=== PATIENT | female | born 1990 | race African-American/Black ===

== ENCOUNTER 2018-07-19 14:28 | Emergency (ER) | payer BC ==
--- NOTE | 2018-07-19 14:41 | EDM.PDOC ---
ED HPI GENERAL MEDICAL PROBLEM - General Chief Complaint: Genitourinary Problem Stated Complaint: UTI Time Seen by Provider: 07/19/18 14:32 - History of Present Illness INITIAL COMMENTS - FREE TEXT/NARRATIVE: HISTORY AND PHYSICAL: History of present illness: Patient is 28-year-old black female presents with concern of frequency and discomfort with urination similar prior UTIs patient is and monogamous and denies any vaginal discharge irregular bleeding and no fever chills nausea vomitingReview of systems: As per history of present illness and below otherwise all systems reviewed and negative. Past medical history: As per history of present illness and as reviewed below otherwise noncontributory. Surgical history: As per history of present illness and as reviewed below otherwise noncontributory. Social history: No reported history of drug or alcohol abuse. Family history: As per history of present illness and as reviewed below otherwise noncontributory. Physical exam: HEENT: Atraumatic, normocephalic, pupils reactive, negative for conjunctival pallor or scleral icterus, mucous membranes moist, throat clear, neck supple, nontender, trachea midline. Lungs: Clear to auscultation, breath sounds equal bilaterally, chest nontender. Heart: S1S2, regular, negative for clicks, rubs, or JVD. Abdomen: Soft, nondistended, nontender. Negative for masses or hepatosplenomegaly. Negative for costovertebral tenderness. Pelvis: Stable nontender. Genitourinary: Deferred. Rectal: Deferred. Extremities: Atraumatic, negative for cords or calf pain. Neurovascular unremarkable. Neuro: Awake, alert, oriented. Cranial nerves II through XII unremarkable. Cerebellum unremarkable. Motor and sensory unremarkable throughout. Exam nonfocal. Diagnostics: UA hCG Therapeutics: None Impression: #1 urinary tract infection Definitive disposition and diagnosis as appropriate pending reevaluation and review of above. - Related Data Allergies Allergy/AdvReac Type Severity Reaction Status Date / Time No Known Allergies Allergy Verified 07/19/18 14:44 Home Meds: Home Meds ARIPiprazole [Abilify] 10 mg PO DAILY 05/31/18 [History] Waterproof Carbonate 300 mg PO BID 05/31/18 [History] Sertraline HCl 100 mg PO DAILY 05/31/18 [History] cloNIDine [Catapres] 2 tab PO DAILY 05/31/18 [History] hydrOXYzine HCl [hydrOXYzine] 50 mg PO BID PRN 05/31/18 [History] traZODone HCl [Trazodone HCl] 100 mg PO DAILY 05/31/18 [History] Past Medical History Psychiatric History: Reports: Anxiety, Bipolar, Depression - Infectious Disease History Infectious Disease History: Reports: Chicken Pox Social & Family History - Caffeine Use Caffeine Use: Reports: None ED ROS GENERAL - Review of Systems Review Of Systems: ROS reveals no pertinent complaints other than HPI. ED EXAM, GENERAL - Physical Exam Exam: See Below (dictation) Course - Vital Signs Last Recorded V/S: Last Vital Signs Temp 36.3 C 07/19/18 14:42 Pulse 92 07/19/18 14:42 Resp 18 07/19/18 14:42 BP 117/83 07/19/18 14:42 Pulse Ox 97 07/19/18 14:42 - Orders/Labs/Meds Orders: Active Orders 24 hr Category Date Time Status HCG QUALITATIVE,URINE [URCHEM] Stat Lab 07/19/18 14:40 Received UA RFX KIAH AND CULT IF INDIC [URIN] Stat Lab 07/19/18 14:40 Received Departure - Departure Time of Disposition: 14:50 Disposition: Home, Self-Care 01 Condition: Good Clinical Impression: UTI, Urinary tract infectious disease - Discharge Information Referrals: PCP,None [Primary Care Provider] - Forms: ED Department Discharge Additional Instructions: The following information is given to patients seen in the emergency department who are being discharged to home. This information is to outline your options for follow-up care. We provide all patients seen in our emergency department with a follow-up referral. The need for follow-up, as well as the timing and circumstances, are variable depending upon the specifics of your emergency department visit. If you don't have a primary care physician on staff, we will provide you with a referral. We always advise you to contact your personal physician following an emergency department visit to inform them of the circumstance of the visit and for follow-up with them and/or the need for any referrals to a consulting specialist. The emergency department will also refer you to a specialist when appropriate. This referral assures that you have the opportunity for followup care with a specialist. All of these measure are taken in an effort to provide you with optimal care, which includes your followup. Under all circumstances we always encourage you to contact your private physician who remains a resource for coordinating your care. When calling for followup care, please make the office aware that this follow-up is from your recent emergency room visit. If for any reason you are refused follow-up, please contact the [facility] emergency department at and asked to speak to the emergency department charge nurse. Keflex as prescribed iridium as prescribed follow-up private medical doctor and ADMINISTRATIVE HEARING OFFICER as needed as discussed and return as needed as discussed - My Orders Last 24 Hours: My Active Orders 07/19/18 14:40 HCG QUALITATIVE,URINE [URCHEM] Stat UA RFX KIAH AND CULT IF INDIC [URIN] Stat - Assessment/Plan Last 24 Hours: My Active Orders 07/19/18 14:40 HCG QUALITATIVE,URINE [URCHEM] Stat UA RFX KIAH AND CULT IF INDIC [URIN] Stat
== END 2018-07-19 15:11 | disposition home or self-care (01) ==
LOC: MW.ED 14:28
DX: N39.0 Urinary tract infection, site not specified (principal); F41.9 Anxiety disorder, unspecified; F32.9 Major depressive disorder, single episode, unspecified; Z79.899 Other long term (current) drug therapy
CPT/HCPCS: 81001; 81025; 99282; 99283

== ENCOUNTER 2019-04-23 16:48 | Emergency (ER) | payer SELFPAY ==
[2019-04-23] MEDS ORDERED: Ketorolac 30 MG/ML SDV IVPUSH ONE (17:19)
[2019-04-23] MEDS ORDERED: Acetaminophen 325 MG Tab PO ONE (17:19)
[2019-04-23] MEDS ORDERED: Ondansetron 4 MG/2 ML SDV IVPUSH ONE (17:19)
[2019-04-23] MEDS ORDERED: Sodium Chloride 0.9% 1,000 ML IV ONE (17:20)
--- NOTE | 2019-04-23 17:29 | EDM.PDOC ---
ED HPI GENERAL MEDICAL PROBLEM - General Chief Complaint: Abdominal Pain Stated Complaint: ABD PAIN Time Seen by Provider: 04/23/19 17:24 Source of Information: Reports: Patient History Limitations: Reports: No Limitations - History of Present Illness INITIAL COMMENTS - FREE TEXT/NARRATIVE: Patient is a 29-year-old female with no significant past medical history presenting with a chief complaint of ear pain, throat pain, back pain. Patient states his symptoms started last night. Patient states the pain has become much more intense. Patient states the pain in her throat is most severe. Patient does not know if she had fevers. Patient reports associated nausea and vomiting. Patient has no other sick contacts that are known. Patient has no recent travel, no sinus congestion. Patient has no shortness of breath, dysuria , hematuria, abdominal pain. Pmhx: None Pshx: None Family Hx: noncontributory Smoking history? no Etoh use? none Drug use? none In addition to that documented in the HPI above, the additional ROS was obtained : Constitutional: Per HPI Eyes: Denies vision changes ENMT: Per HPI CV: Denies chest pain Resp: Denies SOB GI: per HPI : Denies painful urination MSK: Denies recent trauma Skin: Denies new rashes Neuro: Denies new numbness or tingling or weakness Endocrine: Denies unexpected weight loss Heme: Denies bleeding disorders I have reviewed the triage vital signs Const: Well nourished, well developed, appears stated age Eyes: PERRL, no conjunctival injection HENT: NCAT, Neck supple without meningismus . Normal voice, no tonsillar swelling. Ears are normal bilaterally. Normal tympanic membranes. CV: RRR, Warm, well-perfused extremities RESP: CTAB, Unlabored respiratory effort GI: soft, non-tender, non-distended, no masses MSK: No gross deformities appreciated Skin: Warm, dry. No rashes Neuro: Alert, home care consultant II-XII grossly intact. Sensation and motor function of extremities grossly intact. Psych: Appropriate mood and affect Assessment and plan: Patient is a 29-year-old female with viral type syndrome. Patient's labs do not demonstrate any acute abnormalities. Patient is not . Patient is tolerating p.o. in the emergency department after Zofran and IV fluids. Patient given strict return precautions. Urinalysis reviewed and does not demonstrate indication of urinary tract infection. Urine culture was sent for follow-up. All questions dressed and answered. 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 Psychiatric History: Reports: Anxiety, Bipolar, Depression Endocrine/Metabolic History: Reports: Hypothyroidism - Infectious Disease History Infectious Disease History: Reports: Chicken Pox Social & Family History - Family History Family Medical History: Noncontributory - Tobacco Use Smoking Status *Q: Never Smoker Second Hand Smoke Exposure: No - Caffeine Use Caffeine Use: Reports: None - Alcohol Use Number of Drinks Per Day: 6 - Recreational Drug Use Recreational Drug Use: Yes Recreational Drug Type: Reports: Marijuana/Hashish ED ROS ENT - Review of Systems Review Of Systems: See Below ED EXAM, ENT - Physical Exam Exam: See Below Course - Vital Signs Last Recorded V/S: Last Vital Signs Temp 36.3 C 04/23/19 16:57 Pulse 101 H 04/23/19 16:57 Resp 20 04/23/19 16:57 BP 127/89 04/23/19 16:57 Pulse Ox 98 04/23/19 16:57 - Orders/Labs/Meds Orders: Active Orders 24 hr Category Date Time Status CULTURE URINE [RM] Stat Lab 04/23/19 17:20 Received Labs: Laboratory Tests 04/23/19 04/23/19 04/23/19 Range/Units 17:20 17:20 17:20 WBC 12.50 H (4.0-11.0) K/uL RBC 4.20 L (4.30-5.90) M/uL Hgb 12.3 (12.0-16.0) g/dL Hct 34.3 L (36.0-46.0) % MCV 81.7 (80.0-98.0) fL MCH 29.3 (27.0-32.0) pg MCHC 35.9 (31.0-37.0) g/dL RDW Std Deviation 48.7 (28.0-62.0) fl RDW Coeff of Sofia 17 H (11.0-15.0) % Plt Count 332 (150-400) K/uL MPV 9.90 (7.40-12.00) fL Neut % (Auto) 73.9 (48.0-80.0) % Lymph % (Auto) 20.1 (16.0-40.0) % [place] % (Auto) 5.8 (0.0-15.0) % Eos % (Auto) 0.0 (0.0-7.0) % Baso % (Auto) 0.2 (0.0-1.5) % Neut # (Auto) 9.3 H (1.4-5.7) K/uL Lymph # (Auto) 2.5 H (0.6-2.4) K/uL [place] # (Auto) 0.7 (0.0-0.8) K/uL Eos # (Auto) 0.0 (0.0-0.7) K/uL Baso # (Auto) 0.0 (0.0-0.1) K/uL Sodium 136 (136-145) mmol/L Potassium 3.6 (3.5-5.1) mmol/L Chloride 97 L (98-107) mmol/L Carbon Dioxide 23.9 (21.0-32.0) mmol/L BUN 7 (7.0-18.0) mg/dL Creatinine 1.0 (0.6-1.0) mg/dL Est Cr Clr Drug Dosing 82.18 mL/min Estimated GFR (MDRD) > 60.0 ml/min Glucose 99 (74-106) mg/dL Calcium 9.0 (8.5-10.1) mg/dL Total Bilirubin 0.3 (0.2-1.0) mg/dL AST 20 (15-37) IU/L ALT 20 (14-63) IU/L Alkaline Phosphatase 64 (46-116) U/L Total Protein 8.5 H (6.4-8.2) g/dL Albumin 3.5 (3.4-5.0) g/dL Globulin 5.0 H (2.6-4.0) g/dL Albumin/Globulin Ratio 0.7 L (0.9-1.6) Urine Color YELLOW Urine Appearance SLT CLOUDY Urine pH 8.0 (5.0-8.0) Ur Specific [place] 1.015 (1.001-1.035) Urine Protein NEGATIVE (NEGATIVE) mg/dL Urine Glucose (UA) NEGATIVE (NEGATIVE) mg/dL Urine Ketones 15 H (NEGATIVE) mg/dL Urine Occult Blood NEGATIVE (NEGATIVE) Urine Nitrite NEGATIVE (NEGATIVE) Urine Bilirubin NEGATIVE (NEGATIVE) Urine Urobilinogen 0.2 (<2.0) EU/dL Ur Leukocyte Esterase TRACE H (NEGATIVE) Urine RBC 0-2 (0-2/HPF) Urine WBC 3-5 (0-5/HPF) Ur Epithelial Cells MODERATE (NONE-FEW) Urine Bacteria FEW (NEGATIVE) Urine Mucus LIGHT (NONE-MOD) Urine HCG, Qual (NEGATIVE) 04/23/19 Range/Units 17:20 WBC (4.0-11.0) K/uL RBC (4.30-5.90) M/uL Hgb (12.0-16.0) g/dL Hct (36.0-46.0) % MCV (80.0-98.0) fL MCH (27.0-32.0) pg MCHC (31.0-37.0) g/dL RDW Std Deviation (28.0-62.0) fl RDW Coeff of Sofia (11.0-15.0) % Plt Count (150-400) K/uL MPV (7.40-12.00) fL Neut % (Auto) (48.0-80.0) % Lymph % (Auto) (16.0-40.0) % [place] % (Auto) (0.0-15.0) % Eos % (Auto) (0.0-7.0) % Baso % (Auto) (0.0-1.5) % Neut # (Auto) (1.4-5.7) K/uL Lymph # (Auto) (0.6-2.4) K/uL [place] # (Auto) (0.0-0.8) K/uL Eos # (Auto) (0.0-0.7) K/uL Baso # (Auto) (0.0-0.1) K/uL Sodium (136-145) mmol/L Potassium (3.5-5.1) mmol/L Chloride (98-107) mmol/L Carbon Dioxide (21.0-32.0) mmol/L BUN (7.0-18.0) mg/dL Creatinine (0.6-1.0) mg/dL Est Cr Clr Drug Dosing mL/min Estimated GFR (MDRD) ml/min Glucose (74-106) mg/dL Calcium (8.5-10.1) mg/dL Total Bilirubin (0.2-1.0) mg/dL AST (15-37) IU/L ALT (14-63) IU/L Alkaline Phosphatase (46-116) U/L Total Protein (6.4-8.2) g/dL Albumin (3.4-5.0) g/dL Globulin (2.6-4.0) g/dL Albumin/Globulin Ratio (0.9-1.6) Urine Color Urine Appearance Urine pH (5.0-8.0) Ur Specific [place] (1.001-1.035) Urine Protein (NEGATIVE) mg/dL Urine Glucose (UA) (NEGATIVE) mg/dL Urine Ketones (NEGATIVE) mg/dL Urine Occult Blood (NEGATIVE) Urine Nitrite (NEGATIVE) Urine Bilirubin (NEGATIVE) Urine Urobilinogen (<2.0) EU/dL Ur Leukocyte Esterase (NEGATIVE) Urine RBC (0-2/HPF) Urine WBC (0-5/HPF) Ur Epithelial Cells (NONE-FEW) Urine Bacteria (NEGATIVE) Urine Mucus (NONE-MOD) Urine HCG, Qual NEGATIVE (NEGATIVE) Meds: Medications Discontinued Medications Generic Name Dose Route Start Last Admin Trade Name Freq PRN Reason Stop Dose Admin Acetaminophen 650 mg 04/23/19 17:19 04/23/19 17:28 Tylenol PO 04/23/19 17:20 650 mg NOW ONE Administration Sodium Chloride 1,000 mls @ 999 mls/hr 04/23/19 17:20 04/23/19 17:27 Normal Saline IV 04/23/19 18:20 999 mls/hr .Bolus ONE Administration Ketorolac Tromethamine 15 mg 04/23/19 17:19 04/23/19 17:27 Toradol IVPUSH 04/23/19 17:20 15 mg ONETIME ONE Administration Ondansetron HCl 4 mg 04/23/19 17:19 04/23/19 17:27 Zofran IVPUSH 04/23/19 17:20 4 mg ONETIME ONE Administration Departure - Departure Time of Disposition: 18:55 Disposition: Home, Self-Care 01 Clinical Impression: Viral infection - Discharge Information Referrals: Kourtney Marie MD [Primary Care Provider] - Forms: ED Department Discharge Sepsis Event Note - Evaluation Sepsis Screening Result: No Definite Risk - Focused Exam Vital Signs: Vital Signs Temp Pulse Resp BP Pulse Ox 04/23/19 16:57 36.3 C 101 H 20 127/89 98 Date Exam was Performed: 04/23/19 Time Exam was Performed: 18:55 - My Orders Last 24 Hours: My Active Orders 04/23/19 17:20 CULTURE URINE [RM] Stat - Assessment/Plan Last 24 Hours: My Active Orders 04/23/19 17:20 CULTURE URINE [RM] Stat
[2019-04-23 17:56] LABS: BLOOD UREA NITROGEN,BUN 7 mg/dL (7.0-18.0); CARBON DIOXIDE,CO2 23.9 mmol/L (21.0-32.0); CHLORIDE,CL 97 mmol/L (98-107); GLUCOSE RANDOM 99 mg/dL (74-106)
[2019-04-23 18:00] LABS: SODIUM,NA 136 mmol/L (136-145)
[2019-04-23 18:01] LABS: POTASSIUM,K 3.6 mmol/L (3.5-5.1)
== END 2019-04-23 19:26 | disposition home or self-care (01) ==
LOC: MW.ED 16:48
DX: B34.9 Viral infection, unspecified (principal); Z79.899 Other long term (current) drug therapy
CPT/HCPCS: 36415; 80053; 81001; 81025; 85025; 87086; 87804; 96361; 96374; 96375; 99283; A9270; J1885; J2405; J7030

== ENCOUNTER 2019-05-18 15:02 | Emergency (ER) | payer BC, OTHER ==
--- NOTE | 2019-05-18 15:42 | EDM.PDOC ---
ED HPI GENERAL MEDICAL PROBLEM - General Chief Complaint: General Stated Complaint: FLU/FEVER Time Seen by Provider: 05/18/19 15:42 Source of Information: Reports: Patient History Limitations: Reports: No Limitations - History of Present Illness INITIAL COMMENTS - FREE TEXT/NARRATIVE: HISTORY AND PHYSICAL: History of present illness: Patient is a 29-year-old female presents to the ED with complaint of fever and cough. Patient states symptoms started this morning. She states she also had body aches, nausea, vomiting, sore throat. She states she does have some pain with deep breaths but otherwise denies shortness of breath. She denies recent travel or known sick contacts. Review of systems: As per history of present illness and below otherwise all systems reviewed and negative. Past medical history: As per history of present illness and as reviewed below otherwise noncontributory. Surgical history: As per history of present illness and as reviewed below otherwise noncontributory. Social history: No reported history of drug or alcohol abuse. Family history: As per history of present illness and as reviewed below otherwise noncontributory. Physical exam: General: Patient sitting comfortably in no acute distress and nontoxic appearing HEENT: Atraumatic, normocephalic, pupils reactive, negative for conjunctival pallor or scleral icterus, mucous membranes moist, throat clear, neck supple, nontender, trachea midline. No meningeal signs. Lungs: Clear to auscultation, breath sounds equal bilaterally, chest nontender. Heart: S1S2, regular, negative for clicks, rubs, or overt murmur. Abdomen: Soft, nondistended, nontender. Negative for masses or hepatosplenomegaly. Negative for costovertebral tenderness. No rigidity, rebound , guarding. Pelvis: Stable nontender. Genitourinary: Deferred. Rectal: Deferred. Extremities: Atraumatic, negative for cords or calf pain. Neurovascular unremarkable. Neuro: Awake, alert, oriented. Cranial nerves II through XII unremarkable. Cerebellum unremarkable. Motor and sensory unremarkable throughout. Exam nonfocal. Notes: Due to fever and respiratory symptoms and negative influenza and chest x- ray, I did order a COVID-19. Patient is aware of this pending testing result and instructed her to self quarantine until she receives the results of the test. Patient states she is vomiting, nursing staff she did "spit up" in to a cup. Latrell offered but patient declined. She was given IM Phenergan. Patient complaining of body aches including leg pain, arm pain, back pain, and headache. Patient offered motrin but declined. She did give a urine sample and will run a UA to rule out UTI as cause of back pain. Patient left ED AMA at 1820. Diagnostics: Influenza, strep, chest x-ray, COVID-19 Therapeutics: Tylenol IM phenergan Declined motrin Prescriptions: Impression: Fever, Cough, myalgias Plan: Patient left ED AMA Definitive disposition and diagnosis as appropriate pending reevaluation and review of above. generalized Pain Score (Numeric/FACES): 10 - Related Data Allergies Allergy/AdvReac Type Severity Reaction Status Date / Time ketorolac [From Toradol] Allergy Itching Verified 05/18/19 15:27 Home Meds: Home Meds Sertraline HCl 100 mg PO DAILY 05/31/18 [History] hydrOXYzine HCL [hydrOXYzine] 50 mg PO BID PRN 05/31/18 [History] traZODone HCl [Trazodone HCl] 100 mg PO DAILY 05/31/18 [History] Ondansetron [Zofran ODT] 4 mg PO Q6H PRN #12 tab.dis 04/23/19 [Rx] Past Medical History - Past Health History Medical/Surgical History: Denies Medical/Surgical History Cardiovascular History: Reports: Heart Murmur Respiratory History: Reports: Asthma 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 ED EXAM, GENERAL - Physical Exam Exam: See Below (see dictation) Course - Vital Signs Last Recorded V/S: Last Vital Signs Temp 98.4 F 05/18/19 17:20 Pulse 91 05/18/19 17:20 Resp 20 05/18/19 17:20 BP 147/88 H 03/17/20 17:20 Pulse Ox 98 05/18/19 17:20 - Orders/Labs/Meds Orders: Active Orders 24 hr Category Date Time Status CORONAVIRUS (COVID-19) PCR [MREF] Stat Lab 05/18/19 15:37 Received CULTURE STREP A CONFIRMATION [RM] Stat Lab 05/18/19 15:37 Results STREP SCRN A RAPID W CULT CONF [RM] Stat Lab 05/18/19 15:37 Results UA RFX KIAH AND CULT IF INDIC [URIN] Stat Lab 05/18/19 18:05 Received Isolation [COMM] Routine Oth 05/18/19 15:31 Active Meds: Medications Discontinued Medications Generic Name Dose Route Start Last Admin Trade Name Freq PRN Reason Stop Dose Admin Acetaminophen 1,000 mg 05/18/19 15:53 05/18/19 15:59 Tylenol Extra Strength PO 05/18/19 15:54 1,000 mg ONETIME ONE Administration Ibuprofen 600 mg 05/18/19 17:20 05/18/19 18:11 Motrin PO 05/18/19 17:21 600 mg ONETIME ONE Administration Ondansetron HCl 4 mg 05/18/19 16:29 05/18/19 16:45 Zofran Odt PO 05/18/19 16:30 Not Given ONETIME ONE Promethazine HCl 12.5 mg 05/18/19 16:46 05/18/19 17:07 Phenadoz RECTAL 05/18/19 16:47 Not Given ONETIME ONE Promethazine HCl 25 mg 05/18/19 16:49 05/18/19 17:04 Phenergan IM 05/18/19 16:50 25 mg ONETIME ONE Administration Departure - Departure Time of Disposition: 18:22 Disposition: Against Medical Advice 07 Condition: Good Clinical Impression: Myalgia, Fever, Cough - Discharge Information Referrals: PCP,None [Primary Care Provider] - Forms: ED Department Discharge Sepsis Event Note - Evaluation Sepsis Screening Result: No Definite Risk - Focused Exam Vital Signs: Vital Signs Temp Pulse Resp BP Pulse Ox 05/18/19 17:20 98.4 F 91 20 147/88 H 98 05/18/19 15:22 101.0 F H 119 H 22 H 159/72 H 100 Date Exam was Performed: 05/18/19 Time Exam was Performed: 18:17 - My Orders Last 24 Hours: My Active Orders 05/18/19 15:31 Isolation [COMM] Routine 05/18/19 15:37 CORONAVIRUS (COVID-19) PCR [MREF] Stat CULTURE STREP A CONFIRMATION [RM] Stat STREP SCRN A RAPID W CULT CONF [RM] Stat 05/18/19 18:05 UA RFX KIAH AND CULT IF INDIC [URIN] Stat - Assessment/Plan Last 24 Hours: My Active Orders 05/18/19 15:31 Isolation [COMM] Routine 05/18/19 15:37 CORONAVIRUS (COVID-19) PCR [MREF] Stat CULTURE STREP A CONFIRMATION [RM] Stat STREP SCRN A RAPID W CULT CONF [RM] Stat 05/18/19 18:05 UA RFX KIAH AND CULT IF INDIC [URIN] Stat
[2019-05-18] MEDS ORDERED: Acetaminophen 500 MG Tab PO ONE (15:53)
[2019-05-18] MEDS ORDERED: Ondansetron 4 MG Tab.DIS PO ONE (16:29)
[2019-05-18] MEDS ORDERED: Promethazine 12.5 MG Supp RECTAL ONE (16:46)
[2019-05-18] MEDS ORDERED: Promethazine 25 MG/ML SDV IM ONE (16:49)
[2019-05-18] MEDS: Ibuprofen 600 MG Tab PO ONE ×2 (17:35→18:11)
--- NOTE | 2019-05-18 17:40 | CR ---
Chest: Portable view of the chest was obtained. Comparison: No previous chest x-ray. Heart size and mediastinum are normal. Lungs are clear with no acute parenchymal change. Bony structures appear within normal limits. Impression: 1. Nothing acute is identified on portable chest x-ray. Diagnostic code #1 Study was dictated in MDT
== END 2019-05-18 18:21 | disposition left against medical advice (07) ==
LOC: MW.ED 15:02
DX: R50.9 Fever, unspecified (principal); R05 Cough; M79.10 Myalgia, unspecified site; F41.9 Anxiety disorder, unspecified; F32.9 Major depressive disorder, single episode, unspecified; Z88.8 Allergy status to other drugs, medicaments and biological substances; Z79.899 Other long term (current) drug therapy
CPT/HCPCS: 71045; 81003; 87081; 87804; 87880; 96372; 99284; A9270; J2550; U0001

== ENCOUNTER 2019-05-24 21:43 | Emergency (ER) | payer BC ==
--- NOTE | 2019-05-24 22:49 | EDM.PDOC ---
ED HPI GENERAL MEDICAL PROBLEM - General Chief Complaint: Respiratory Problem Stated Complaint: HARD TIME BREATHING Time Seen by Provider: 05/24/19 22:43 Source of Information: Reports: Patient History Limitations: Reports: No Limitations - History of Present Illness INITIAL COMMENTS - FREE TEXT/NARRATIVE: 29-year-old female presents emergency room stating her body aches patient states her back hurts and her body aches and she has had a fever and nausea. Patient is allergic to Toradol. Feels she is dehydrated and is very nauseous Onset: Today Duration: Hour(s): Location: Reports: Back Quality: Reports: Ache Severity: Moderate Worsens with: Reports: None Associated Symptoms: Reports: No Other Symptoms bodyaches Pain Score (Numeric/FACES): 8 - Related Data Allergies Allergy/AdvReac Type Severity Reaction Status Date / Time ketorolac [From Toradol] Allergy Itching Verified 05/24/19 22:19 Home Meds: Home Meds Sertraline HCl 100 mg PO DAILY 05/31/18 [History] hydrOXYzine HCL [hydrOXYzine] 25 mg PO BID PRN 05/31/18 [History] traZODone HCl [Trazodone HCl] 100 mg PO DAILY 05/31/18 [History] Ondansetron [Zofran ODT] 4 mg PO Q6H PRN #12 tab.dis 04/23/19 [Rx] Past Medical History - Past Health History Medical/Surgical History: Denies Medical/Surgical History HEENT History: Reports: None Cardiovascular History: Reports: None, Heart Murmur Respiratory History: Reports: Asthma Gastrointestinal History: Reports: None Genitourinary History: Reports: None Other [employer] History: D and C Musculoskeletal History: Reports: None Neurological History: Reports: None Psychiatric History: Reports: Anxiety, Bipolar, Depression Endocrine/Metabolic History: Reports: Hypothyroidism Hematologic History: Reports: None Dermatologic History: Reports: None - Infectious Disease History Infectious Disease History: Reports: None Social & Family History - Family History Family Medical History: Noncontributory - Tobacco Use Smoking Status *Q: Never Smoker - Caffeine Use Caffeine Use: Reports: None - Recreational Drug Use Recreational Drug Use: No ED ROS GENERAL - Review of Systems Review Of Systems: See Below Constitutional: Reports: Fever HEENT: Reports: No Symptoms Respiratory: Reports: No Symptoms Cardiovascular: Reports: No Symptoms Endocrine: Reports: No Symptoms GI/Abdominal: Reports: No Symptoms : Reports: Flank Pain Musculoskeletal: Reports: Muscle Pain Neurological: Reports: No Symptoms Psychiatric: Reports: No Symptoms Hematologic/Lymphatic: Reports: No Symptoms Immunologic: Reports: No Symptoms ED EXAM, GENERAL - Physical Exam Exam: See Below Exam Limited By: No Limitations General Appearance: Alert, WD/WN, Anxious Eye Exam: Bilateral Eye: Normal Fundi, Normal Inspection Nose: Normal Inspection Throat/Mouth: Normal Inspection Head: Atraumatic Neck: Normal Inspection Respiratory/Chest: No Respiratory Distress Cardiovascular: Normal Peripheral Pulses GI/Abdominal: Normal Bowel Sounds, Soft, No Distention, No Abnormal Bruit (Female) Exam: Deferred Rectal (Female) Exam: Deferred Back Exam: Normal Inspection, Full Range of Motion Extremities: Normal Inspection, Normal Range of Motion, No Pedal Edema, Normal Capillary Refill Neurological: Alert, Oriented, CN II-XII Intact Psychiatric: Normal Affect, Normal Mood Skin Exam: Warm, Dry, Intact Lymphatic: No Adenopathy Course - Vital Signs Text/Narrative:: 29-year-old female presents to the emergency room pain all over and back pain. Patient shakings thinks she is dehydrated. Patient found to have urinary tract infection. Patient's labs are normal. Patient was given IV fluids Benadryl and Reglan for nausea. Patient be discharged home with a diagnosis of UTI on Keflex for 3 days. Last Recorded V/S: Last Vital Signs Temp 96.6 F L 05/25/19 01:46 Pulse 78 05/25/19 01:46 Resp 19 05/25/19 01:46 BP 117/86 05/25/19 01:46 Pulse Ox 100 05/25/19 01:46 - Orders/Labs/Meds Orders: Active Orders 24 hr Category Date Time Status CULTURE URINE [RM] Stat Lab 05/24/19 23:30 Received Labs: Laboratory Tests 05/24/19 05/24/19 05/24/19 Range/Units 23:25 23:25 23:30 WBC 5.67 (4.0-11.0) K/uL RBC 4.61 (4.30-5.90) M/uL Hgb 13.5 (12.0-16.0) g/dL Hct 40.1 (36.0-46.0) % MCV 87.0 (80.0-98.0) fL MCH 29.3 (27.0-32.0) pg MCHC 33.7 (31.0-37.0) g/dL RDW Std Deviation 49.4 (28.0-62.0) fl RDW Coeff of Sofia 15 (11.0-15.0) % Plt Count 257 (150-400) K/uL MPV 10.70 (7.40-12.00) fL Neut % (Auto) 55.9 (48.0-80.0) % Lymph % (Auto) 35.8 (16.0-40.0) % [place] % (Auto) 7.9 (0.0-15.0) % Eos % (Auto) 0.2 (0.0-7.0) % Baso % (Auto) 0.2 (0.0-1.5) % Neut # (Auto) 3.2 (1.4-5.7) K/uL Lymph # (Auto) 2.0 (0.6-2.4) K/uL [place] # (Auto) 0.5 (0.0-0.8) K/uL Eos # (Auto) 0.0 (0.0-0.7) K/uL Baso # (Auto) 0.0 (0.0-0.1) K/uL Nucleated RBC % 0.0 /100WBC Nucleated RBCs # 0 K/uL Sodium 138 (136-145) mmol/L Potassium 3.6 (3.5-5.1) mmol/L Chloride 100 (98-107) mmol/L Carbon Dioxide 21.5 (21.0-32.0) mmol/L BUN 11 (7.0-18.0) mg/dL Creatinine 0.8 (0.6-1.0) mg/dL Est Cr Clr Drug Dosing 102.72 mL/min Estimated GFR (MDRD) > 60.0 ml/min Glucose 106 (74-106) mg/dL Calcium 9.5 (8.5-10.1) mg/dL Total Bilirubin 0.2 (0.2-1.0) mg/dL AST 30 (15-37) IU/L ALT 29 (14-63) IU/L Alkaline Phosphatase 52 (46-116) U/L Total Protein 8.3 H (6.4-8.2) g/dL Albumin 3.8 (3.4-5.0) g/dL Globulin 4.5 H (2.6-4.0) g/dL Albumin/Globulin Ratio 0.8 L (0.9-1.6) Urine Color YELLOW Urine Appearance SLT CLOUDY Urine pH 8.5 H (5.0-8.0) Ur Specific [place] 1.020 (1.001-1.035) Urine Protein 30 H (NEGATIVE) mg/dL Urine Glucose (UA) NEGATIVE (NEGATIVE) mg/dL Urine Ketones >=80 (NEGATIVE) mg/dL Urine Occult Blood NEGATIVE (NEGATIVE) Urine Nitrite NEGATIVE (NEGATIVE) Urine Bilirubin SMALL H (NEGATIVE) Urine Ictotest NEGATIVE Urine Urobilinogen 0.2 (<2.0) EU/dL Ur Leukocyte Esterase SMALL H (NEGATIVE) Urine RBC 0-1 (0-2/HPF) Urine WBC 0-2 (0-5/HPF) Ur Epithelial Cells FEW (NONE-FEW) Urine Bacteria 2+ H (NEGATIVE) Urine Mucus LIGHT (NONE-MOD) Urine HCG, Qual (NEGATIVE) 05/24/19 Range/Units 23:30 WBC (4.0-11.0) K/uL RBC (4.30-5.90) M/uL Hgb (12.0-16.0) g/dL Hct (36.0-46.0) % MCV (80.0-98.0) fL MCH (27.0-32.0) pg MCHC (31.0-37.0) g/dL RDW Std Deviation (28.0-62.0) fl RDW Coeff of Sofia (11.0-15.0) % Plt Count (150-400) K/uL MPV (7.40-12.00) fL Neut % (Auto) (48.0-80.0) % Lymph % (Auto) (16.0-40.0) % [place] % (Auto) (0.0-15.0) % Eos % (Auto) (0.0-7.0) % Baso % (Auto) (0.0-1.5) % Neut # (Auto) (1.4-5.7) K/uL Lymph # (Auto) (0.6-2.4) K/uL [place] # (Auto) (0.0-0.8) K/uL Eos # (Auto) (0.0-0.7) K/uL Baso # (Auto) (0.0-0.1) K/uL Nucleated RBC % /100WBC Nucleated RBCs # K/uL Sodium (136-145) mmol/L Potassium (3.5-5.1) mmol/L Chloride (98-107) mmol/L Carbon Dioxide (21.0-32.0) mmol/L BUN (7.0-18.0) mg/dL Creatinine (0.6-1.0) mg/dL Est Cr Clr Drug Dosing mL/min Estimated GFR (MDRD) ml/min Glucose (74-106) mg/dL Calcium (8.5-10.1) mg/dL Total Bilirubin (0.2-1.0) mg/dL AST (15-37) IU/L ALT (14-63) IU/L Alkaline Phosphatase (46-116) U/L Total Protein (6.4-8.2) g/dL Albumin (3.4-5.0) g/dL Globulin (2.6-4.0) g/dL Albumin/Globulin Ratio (0.9-1.6) Urine Color Urine Appearance Urine pH (5.0-8.0) Ur Specific [place] (1.001-1.035) Urine Protein (NEGATIVE) mg/dL Urine Glucose (UA) (NEGATIVE) mg/dL Urine Ketones (NEGATIVE) mg/dL Urine Occult Blood (NEGATIVE) Urine Nitrite (NEGATIVE) Urine Bilirubin (NEGATIVE) Urine Ictotest Urine Urobilinogen (<2.0) EU/dL Ur Leukocyte Esterase (NEGATIVE) Urine RBC (0-2/HPF) Urine WBC (0-5/HPF) Ur Epithelial Cells (NONE-FEW) Urine Bacteria (NEGATIVE) Urine Mucus (NONE-MOD) Urine HCG, Qual NEGATIVE (NEGATIVE) Meds: Medications Discontinued Medications Generic Name Dose Route Start Last Admin Trade Name Freq PRN Reason Stop Dose Admin Diphenhydramine HCl 50 mg 05/25/19 01:25 05/25/19 01:38 Benadryl IVPUSH 05/25/19 01:26 50 mg ONETIME ONE Administration Sodium Chloride 1,000 mls @ 1,000 mls/hr 05/25/19 01:26 05/25/19 01:38 Normal Saline IV 05/25/19 02:25 1,000 mls/hr .Bolus ONE Administration Cefazolin Sodium/Dextrose 1 gm 50 mls @ 100 mls/hr 05/25/19 01:27 05/25/19 01 :38 / Premix IV 05/25/19 01:56 100 mls/hr ONETIME ONE Administration Metoclopramide HCl 10 mg 05/25/19 01:34 05/25/19 01:39 Reglan IVPUSH 05/25/19 01:35 10 mg ONETIME ONE Administration Metoclopramide HCl Confirm 05/25/19 01:35 05/25/19 01:39 Reglan Administered 05/25/19 01:36 Not Given Dose 10 mg .ROUTE .STK-MED ONE Departure - Departure Time of Disposition: 02:28 Disposition: Home, Self-Care 01 Condition: Good Clinical Impression: Urinary tract infection - Discharge Information Instructions: Urinary Tract Infection, Adult Referrals: Swati Mayorga [employer] [Primary Care Provider] - Forms: ED Department Discharge Sepsis Event Note - Evaluation Sepsis Screening Result: No Definite Risk - Focused Exam Vital Signs: Vital Signs Temp Pulse Resp BP Pulse Ox 05/25/19 01:46 96.6 F L 78 19 117/86 100 05/24/19 22:19 97.2 F 94 28 H 186/89 H 99 Date Exam was Performed: 05/25/19 Time Exam was Performed: 02:26 - My Orders Last 24 Hours: My Active Orders 05/24/19 23:30 CULTURE URINE [RM] Stat - Assessment/Plan Last 24 Hours: My Active Orders 05/24/19 23:30 CULTURE URINE [RM] Stat
[2019-05-25] LABS: BLOOD UREA NITROGEN,BUN 11 mg/dL (7.0-18.0); CARBON DIOXIDE,CO2 21.5 mmol/L (21.0-32.0); CHLORIDE,CL 100 mmol/L (98-107); GLUCOSE RANDOM 106 mg/dL (74-106); POTASSIUM,K 3.6 mmol/L (3.5-5.1); SODIUM,NA 138 mmol/L (136-145)
[2019-05-25] MEDS ORDERED: diphenhydrAMINE 50 MG/ML SDV IVPUSH ONE (01:25)
[2019-05-25] MEDS ORDERED: Sodium Chloride 0.9% 1,000 ML IV ONE (01:26)
[2019-05-25] MEDS ORDERED: Prochlorperazine 10 MG in Sodium Chloride 0.9% 50 ML IV ONE (01:26)
[2019-05-25] MEDS ORDERED: ceFAZolin 1 GM in Premix Bag 1 BAG IV ONE (01:27)
[2019-05-25] MEDS ORDERED: Metoclopramide 10 MG/2 ML SDV IVPUSH ONE (01:34)
[2019-05-25] MEDS ORDERED: Metoclopramide 10 MG/2 ML SDV ONE (01:35)
== END 2019-05-25 02:40 | disposition home or self-care (01) ==
LOC: MW.ED 21:43
DX: N39.0 Urinary tract infection, site not specified (principal); F41.9 Anxiety disorder, unspecified; F32.9 Major depressive disorder, single episode, unspecified; Z88.8 Allergy status to other drugs, medicaments and biological substances; Z79.899 Other long term (current) drug therapy
CPT/HCPCS: 36415; 80053; 81001; 81025; 85025; 87086; 96365; 96375; 99283; J0690; J1200; J2765; J7030

== ENCOUNTER 2021-01-14 17:59 | Emergency (ER) | payer SELFPAY ==
[2021-01-14] MEDS ORDERED: Sodium Chloride 0.9% 2.5 ML Syringe FLUSH PRN (19:20)
[2021-01-14] MEDS ORDERED: Sodium Chloride 0.9% 10 ML Syringe FLUSH PRN (19:20)
[2021-01-14] MEDS ORDERED: Ondansetron 4 MG/2 ML SDV IVPUSH ONE (19:22)
[2021-01-14] MEDS ORDERED: Sodium Chloride 0.9% 1,000 ML IV ONE (19:22)
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
--- NOTE | 2021-01-14 20:00 | CR ---
Indication: Cough Technique: PA and Lateral views of the chest. Comparison: May 18, 2019. Findings: The heart is normal in size. The lungs are clear. No infiltrate, pleural effusion, or pneumothorax is identified. Impression: No acute cardiopulmonary process Dictated by Zhane Gilliland MD @ 01/14/2021 7:58:51 PM (Electronically Signed)
[2021-01-14 20:16] LABS: BLOOD UREA NITROGEN,BUN 8 mg/dL (7.0-18.0); CARBON DIOXIDE,CO2 24.1 mmol/L (21.0-32.0); CHLORIDE,CL 97 mmol/L (98-107); GLUCOSE RANDOM 117 mg/dL (74-106); POTASSIUM,K 3.9 mmol/L (3.5-5.1); SODIUM,NA 131 mmol/L (136-145)
[2021-01-14 20:33] LABS: CORONAVIRUS COVID-19 NAA POSITIVE (NEGATIVE); INFLUENZA A NAA NEGATIVE (NEGATIVE); INFLUENZA B NAA NEGATIVE (NEGATIVE); RESPIRATORY SYNCYTIAL VIR NAA NEGATIVE (NEGATIVE)
== END 2021-01-14 21:10 | disposition home or self-care (01) ==
LOC: MW.ED 17:59
DX: U07.1 COVID-19 (principal); J45.909 Unspecified asthma, uncomplicated; Z88.5 Allergy status to narcotic agent; Z79.899 Other long term (current) drug therapy
CPT/HCPCS: 0241U; 36415; 71046; 80053; 81001; 81025; 85025; 96374; 99284; J2405; J7030

== ENCOUNTER 2021-04-13 00:22 | Emergency (ER) | payer BC, OTHER | END 2021-04-13 01:16 | disposition home or self-care (01) | LOC: MW.ED 00:22 | DX: F12.90 Cannabis use, unspecified, uncomplicated (principal) | CPT/HCPCS: 80305-QW; 99282; 99284 ==

== ENCOUNTER 2022-02-13 09:33 | Emergency (ER) | payer MEDICAID ==
[2022-02-13] MEDS ORDERED: Phenazopyridine 200 MG Tab PO ONE (10:13)
[2022-02-13] MEDS ORDERED: Ciprofloxacin 500 MG Tab PO ONE (10:38)
== END 2022-02-13 11:18 | disposition home or self-care (01) ==
LOC: MW.ED 09:33
DX: N39.0 Urinary tract infection, site not specified (principal); J45.909 Unspecified asthma, uncomplicated; Z88.5 Allergy status to narcotic agent
CPT/HCPCS: 81001; 81025; 87086; 99283; A9270